=== PATIENT | male | born 1955 | race Caucasian/White ===

== ENCOUNTER 2016-06-06 09:06 | Outpatient (CLI) ==
[2016-06-06 09:25] LABS: BASOPHILS # (AUTO) 0.1 K/uL (0-0.2); BASOPHILS % (AUTO) 0.6 % (0.0-3.0); EOSINOPHILS # (AUTO) 0.7 K/ul (0.0-0.7); HEMATOCRIT 44.6 % (42.0-52.0); HEMOGLOBIN 14.1 g/dl (14.0-18.0); IMMATURE GRANULOCYTE % (AUTO) 0.4 % (0.0-5.0); LYMPHOCYTES # (AUTO) 2.8 K/uL (0.60-3.4); LYMPHOCYTES % (AUTO) 25.1 (10.0-50.0); MEAN CORPUSCULAR HEMOGLOBIN 31.1 pg (27.0-31.0); MEAN CORPUSCULAR HGB CONC 31.6 (31.8-35.4); MEAN CORPUSCULAR VOLUME 98.5 fl (80.0-94.0); MONOCYTES # (AUTO) 1.4 K/uL (0.4-2.0); MONOCYTES % (AUTO) 12.2 (0-10); NEUTROPHILS # (AUTO) 6.2 K/ul (2.0-6.9); NEUTROPHILS % (AUTO) 55.7; PLATELET COUNT 215 10^3/uL (140-440); RED BLOOD COUNT 4.53 10^6/ul (4.70-6.10); WHITE BLOOD COUNT 11.19 K/ul (4.2-10.2)
[2016-06-06 09:29] LABS: BILIRUBIN,URINE 2+ (NEGATIVE); KETONES,URINE Trace (NEGATIVE); LEUKOCYTE ESTERASE ,URINE Negative (NEGATIVE); NITRITE,URINE Negative (NEGATIVE); PH,URINE 5.5 (5-9); PROTEIN,URINE 1+ (NEGATIVE); URINE, BLOOD Trace-intact (NEGATIVE)
[2016-06-06 09:34] LABS: ADD URINE MICROSCOPIC YES
[2016-06-06 09:50] LABS: ALBUMIN 3.5 g/dL (3.4-5.0); ALBUMIN/GLOBULIN RATIO 0.97; BILIRUBIN,TOTAL 0.48 mg/dL (0.00-1.20); BUN/CREATININE RATIO 14.01; CALCIUM 9.4 mg/dL (8.2-10.2); CHOL/HDL RATIO 5.5 (4.5-6.4); CREATININE 1.07 mg/dL (0.60-1.10); TOTAL PROTEIN 7.1 g/dL (5.8-8.1)
== END 2016-06-06 09:07 | disposition home or self-care (01) ==
LOC: LAB 09:06
PROVIDERS: ATTEND Family Medicine
DX: E78.5 Hyperlipidemia, unspecified (principal); I10 Essential (primary) hypertension; J44.9 Chronic obstructive pulmonary disease, unspecified; I25.10 Atherosclerotic heart disease of native coronary artery without angina pectoris; Z95.5 Presence of coronary angioplasty implant and graft
CPT/HCPCS: 36415; 80053; 80061; 81001; 85025

== ENCOUNTER 2017-01-10 10:58 | Outpatient (CLI) ==
[2017-01-10 11:18] LABS: BASOPHILS % (AUTO) 0.4 % (0.0-3.0); EOSINOPHILS # (AUTO) 0.2 K/ul (0.0-0.7); EOSINOPHILS % (AUTO) 2.4 % (0.0-7.0); HEMATOCRIT 40.5 % (42.0-52.0); HEMOGLOBIN 13.8 g/dl (14.0-18.0); IMMATURE GRANULOCYTE % (AUTO) 0.4 % (0.0-5.0); LYMPHOCYTES # (AUTO) 2.3 K/uL (0.60-3.4); LYMPHOCYTES % (AUTO) 32.7 (10.0-50.0); MEAN CORPUSCULAR HEMOGLOBIN 32.4 pg (27.0-31.0); MEAN CORPUSCULAR HGB CONC 34.1 (31.8-35.4); MEAN CORPUSCULAR VOLUME 95.1 fl (80.0-94.0); MONOCYTES # (AUTO) 0.7 K/uL (0.4-2.0); MONOCYTES % (AUTO) 10.6 (0-10); NEUTROPHILS # (AUTO) 3.7 K/ul (2.0-6.9); NEUTROPHILS % (AUTO) 53.5; PLATELET COUNT 167 10^3/uL (140-440); RED BLOOD COUNT 4.26 10^6/ul (4.70-6.10); WHITE BLOOD COUNT 6.98 K/ul (4.2-10.2)
[2017-01-10 11:19] LABS: BILIRUBIN,URINE Negative (NEGATIVE); KETONES,URINE Negative (NEGATIVE); LEUKOCYTE ESTERASE ,URINE Negative (NEGATIVE); NITRITE,URINE Negative (NEGATIVE); PROTEIN,URINE Negative (NEGATIVE); URINE, BLOOD Trace-intact (NEGATIVE)
[2017-01-10 11:35] LABS: ADD URINE MICROSCOPIC YES
[2017-01-10 11:40] LABS: ALBUMIN 3.5 g/dL (3.4-5.0); ALBUMIN/GLOBULIN RATIO 1.03; ANION GAP 12.2; BILIRUBIN,TOTAL 0.48 mg/dL (0.00-1.20); BUN/CREATININE RATIO 12.24; CALCIUM 9.3 mg/dL (8.2-10.2); CHOL/HDL RATIO 4.9 (4.5-6.4); CREATININE 0.98 mg/dL (0.60-1.10); POTASSIUM 4.2 mmol/L (3.5-5.1); TOTAL PROTEIN 6.9 g/dL (5.8-8.1)
--- NOTE | 2017-01-10 13:15 | DI ---
EXAM: Chest two views HISTORY: Shortness of air and low breathing sounds COMPARISON: 12/16/2015 TECHNIQUE: Two views of the chest were performed FINDINGS: The lungs are Clear, excepting for granulomatous calcification. Lungs are hyperinflated. There is no pleural effusion or pneumothorax. The heart is normal in size. The mediastinal contour is normal. There are no acute abnormalities of the bones. IMPRESSION: 1. No acute cardiopulmonary process. 2. Hyperinflated lungs suggest chronic obstructive pulmonary disease
== END 2017-01-10 10:59 | disposition home or self-care (01) ==
LOC: LAB 10:58
PROVIDERS: ATTEND Family Medicine
DX: R06.02 Shortness of breath (principal); J44.9 Chronic obstructive pulmonary disease, unspecified; I10 Essential (primary) hypertension; I25.10 Atherosclerotic heart disease of native coronary artery without angina pectoris; E78.5 Hyperlipidemia, unspecified; L40.50 Arthropathic psoriasis, unspecified; Z72.0 Tobacco use; Z79.899 Other long term (current) drug therapy
CPT/HCPCS: 36415; 80053; 80061; 81001; 85025

== ENCOUNTER 2017-06-28 13:26 | Outpatient (CLI) | END 2017-06-28 13:27 | disposition home or self-care (01) | LOC: LAB 13:26 | PROVIDERS: ATTEND Family Medicine | DX: I25.10 Atherosclerotic heart disease of native coronary artery without angina pectoris (principal); I10 Essential (primary) hypertension; E78.5 Hyperlipidemia, unspecified; J44.9 Chronic obstructive pulmonary disease, unspecified; Z79.899 Other long term (current) drug therapy | CPT/HCPCS: 36415; 80053; 80061; 85025 ==

== ENCOUNTER 2017-09-27 12:09 | Outpatient (CLI) | payer OTHER ==
--- NOTE | 2017-09-27 14:52 | US ---
EXAM: Carotid artery Doppler History: Speech disturbance. Technique: Multiple sonographic images through the bilateral internal carotid arteries were obtained . Color duplex Doppler was used to interrogate vascular flow. Findings: The left ICA peak systolic velocities within normal limits measuring 0.9 meters per second. The left ICA/cca PSV ratio is normal at 1.0. The left vertebral artery is patent and demonstrates antegrade flow. Owens scale images demonstrate mild plaque buildup within the left internal carotid artery. The right ICA peak systolic velocity is within normal limits measuring 0.9 meters per second. The rig ht ICA/cca PSV ratio is normal at 1.7. The right vertebral artery is patent and demonstrates antegra de flow. Owens scale images demonstrate mild plaque buildup within the right internal carotid artery. Impression: No significant hemodynamic stenosis of the bilateral internal carotid arteries.
== END 2017-09-27 12:10 | disposition home or self-care (01) ==
LOC: RAD 12:09
PROVIDERS: ATTEND Family Medicine
DX: I25.10 Atherosclerotic heart disease of native coronary artery without angina pectoris (principal); R47.89 Other speech disturbances; J44.9 Chronic obstructive pulmonary disease, unspecified; G31.84 Mild cognitive impairment of uncertain or unknown etiology
CPT/HCPCS: 93005; 93010

== ENCOUNTER 2017-10-12 15:47 | Outpatient (CLI) ==
--- NOTE | 2017-10-12 16:56 | CT ---
EXAM: CT of the head without contrast History: Vertigo. Technique: Multiplanar CT images through the head were obtained without the administration of IV con trast Findings: Mild to moderate mucosal thickening of the ethmoid air cells. Mild mucosal thickening of the sphenoid sinuses. Mild mucosal thickening of the bilateral maxillary sinuses. Mastoid air cells are clear in general. No acute calvarial abnormalities. Intracranially the ventricular and cisternal spaces are normal in size, shape and configuration for a patient of this age. No dominant mass or midline shift. No hydrocephalous. No acute intracranial hemorrhage or abnormal extraaxial fluid collections. Impression: 1. No acute intracranial process. 2. Mild to moderate paranasal sinusitis.
== END 2017-10-12 15:48 | disposition home or self-care (01) ==
LOC: RAD 15:47
PROVIDERS: ATTEND Family Medicine
DX: R42 Dizziness and giddiness (principal); I25.10 Atherosclerotic heart disease of native coronary artery without angina pectoris; Z95.5 Presence of coronary angioplasty implant and graft

== ENCOUNTER 2017-11-09 15:47 | Outpatient (CLI) | payer OTHER ==
--- NOTE | 2017-11-10 07:32 | DI ---
EXAM: Radiographs, left elbow HISTORY: Left elbow trauma, swelling, mass. COMPARISON: None available. TECHNIQUE: Three views. FINDINGS: Bone mineralization is normal. No fracture or dislocation identified. There is mild spur ring at the humeral ulnar joint. Significant posterior soft tissue swelling is seen. IMPRESSION: Posterior soft tissue swelling without fracture or dislocation. Clinical follow-up is recommended.
== END 2017-11-09 15:48 | disposition home or self-care (01) ==
LOC: RAD 15:47
PROVIDERS: ATTEND Family Medicine
DX: R22.32 Localized swelling, mass and lump, left upper limb (principal)

== ENCOUNTER 2018-04-09 11:19 | Outpatient (CLI) | END 2018-04-09 11:20 | disposition home or self-care (01) | LOC: LAB 11:19 | PROVIDERS: ATTEND Family Medicine | DX: E78.5 Hyperlipidemia, unspecified (principal); I10 Essential (primary) hypertension; I25.10 Atherosclerotic heart disease of native coronary artery without angina pectoris; J42 Unspecified chronic bronchitis | CPT/HCPCS: 36415; 80053; 80061; 81001; 85025 ==

== ENCOUNTER 2018-10-12 12:14 | Outpatient (CLI) | END 2018-10-12 12:15 | disposition home or self-care (01) | LOC: RHC-LAB 12:14 → FCC-LAB 12:15 | PROVIDERS: ATTEND Family Medicine | DX: R31.9 Hematuria, unspecified (principal); I10 Essential (primary) hypertension; Z12.5 Encounter for screening for malignant neoplasm of prostate; Z11.59 Encounter for screening for other viral diseases; I25.10 Atherosclerotic heart disease of native coronary artery without angina pectoris; E78.00 Pure hypercholesterolemia, unspecified | CPT/HCPCS: 36415; 80053; 80061; 81001; 85025; 86803 ==

== ENCOUNTER 2018-10-18 08:29 | Outpatient (CLI) ==
--- NOTE | 2018-10-18 09:18 | US ---
EXAM: ULTRASOUND AORTA screen HISTORY: Nicotine dependence, cigarettes FINDINGS: Ultrasound aorta. Real time welch-scale ultrasound, color Doppler imaging and spectral antwon lysis performed. The AP and transverse measurements respectively, in centimeters are as follows: Proximal: 1.7 x 1.6 Mid: 3.0 x 3.3 Distal: 2.5 x 2.8 Right iliac: 0.9 x 0.9 Left iliac: 0.8 x 0.6 Distal aortic PSV (m/s): No data IMPRESSION: Fusiform aneurysmal caliber of the infrarenal aorta measuring up to 3.3 cm.
== END 2018-10-18 08:30 | disposition home or self-care (01) ==
LOC: RAD 08:29
PROVIDERS: ATTEND Family Medicine
DX: F17.210 Nicotine dependence, cigarettes, uncomplicated (principal); Z13.6 Encounter for screening for cardiovascular disorders
CPT/HCPCS: 76706

== ENCOUNTER 2018-12-15 12:55 | Emergency (ER) ==
[2018-12-15 13:00] VITALS: BP 123/63; TEMP 97.5; BMI 23.1
[2018-12-15] MEDS ORDERED: BOOSTRIX IM ONE (13:45)
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
== END 2018-12-15 14:10 | disposition home or self-care (01) ==
LOC: ED 12:55
DX: S61.532A Puncture wound without foreign body of left wrist, initial encounter (principal); W29.8XXA Contact with other powered hand tools and household machinery, initial encounter; F17.210 Nicotine dependence, cigarettes, uncomplicated
CPT/HCPCS: 90471; 90715; 99282

== ENCOUNTER 2019-01-22 16:37 | Outpatient (CLI) | END 2019-01-22 16:38 | disposition home or self-care (01) | LOC: RHC-LAB 16:37 → FCC-LAB 16:38 | PROVIDERS: ATTEND Family Medicine | DX: Z11.4 Encounter for screening for human immunodeficiency virus [HIV] (principal) | CPT/HCPCS: 36415; 87389 ==